=== PATIENT | female | born 1980 | race Caucasian/White ===

== ENCOUNTER 2020-12-11 18:42 | Emergency (ER) | payer OTHER ==
[~2020-12-11] VITALS: Ht 157.5 cm; Wt 81.7 kg
[2020-12-11] MEDS ORDERED: SYNTHROID125 MC1 PO (19:09)
[2020-12-11] MEDS ORDERED: ESCITALOPRAM OXA5 MG PO (19:10)
[2020-12-11 19:36] LABS: URINE BILIRUBIN NEGATIVE (Negative); URINE BLOOD 1+ (Negative); URINE CLARITY CLEAR; URINE COLOR YELLOW; URINE GLUCOSE-RANDOM NEGATIVE (Negative); URINE KETONES TRACE (Negative); URINE LEUKOCYTES-REFLEX NEGATIVE (Negative); URINE NITRITE-REFLEX NEGATIVE (Negative); URINE PROTEIN NEGATIVE (Negative); URINE SPECIFIC GRAVITY 1.025 (1.005-1.030); URINE UROBILINOGEN 0.2 E.U./dl (0.2-1.0)
[2020-12-11 19:57] LABS: CASTS None Seen /LPF (None Seen); CRYSTALS None Seen /LPF (None Seen); SQUAMOUS >10 Many /LPF (0-3)
[2020-12-11 19:58] LABS: MUCUS 0-3 Light strn/LPF (None Seen); URINE RBC 0-2 Rare /HPF (0-2); URINE WBC-REFLEX 0-5 Rare /HPF (0-5)
[2020-12-11 20:50] VITALS: BP 128/80
--- NOTE | 2020-12-12 10:44 | EKG ---
[place] [address] ELECTROCARDIOGRAM REPORT Name: JANAY LOGAN Room: [place]#: [id number] Admission: 12/11/20 Attend Phys: Discharge: 12/11/20 Date of : 84 Date of Service: 12/11/201913 Report #: [id number] THIS REPORT FOR: //name// [facility] ED Test Date: 2020-12-11 Test Time: 19:14:45 Pat Name: JANAY LOGAN Department: Room: Gender: F Input Output Clerk: : 1980 Requested By: Francisca Ladd Order Number: [id number] MD: Nelson Del Angel Measurements Intervals [place] Rate: 61 P: 36 [place]: 150 QRS: 59 QRSD: 98 T: 37 QT: 433 QTc: 437 Interpretive Statements Sinus rhythm No previous ECG available for comparison Electronically Signed On 12-12-2020 10:44:42 CDT by Nelson Del Angel [email or web address] <ELECTRONICALLY SIGNED> By: Nelson Del Angel MD, [facility] 12/12/20 1044 13 13 Nelson Del Angel MD, FAC /EPI
== END 2020-12-11 20:51 | disposition home or self-care (01) ==
LOC: M.ERS 18:42
PROVIDERS: Nurse Practitioner Family
DX: F41.1 Generalized anxiety disorder (principal); R00.0 Tachycardia, unspecified; Z79.899 Other long term (current) drug therapy; Z03.89 Encounter for observation for other suspected diseases and conditions ruled out